=== PATIENT | female | born 1965 | race African-American/Black ===

== ENCOUNTER → 2023-03-28 | Outpatient (CLI) | payer OTHER ==
[2023-03-29 10:30] LABS: RUBELLA AB IGG-REFLAB 1.43 index (Immune >0.99); RUBEOLA (MEASLES) IGG 20.8 AU/mL (Immune >16.4)
== END | disposition home or self-care (01) ==
LOC: LABMN 14:07
PROVIDERS: ATTEND Internal Medicine
DX: Z02.1 Encounter for pre-employment examination (principal)
CPT/HCPCS: 86706; 86735; 86762; 86765; 86787

== ENCOUNTER 2023-06-30 18:54 | Emergency (ER) | payer OTHER ==
[~2023-06-30] VITALS: Ht 160 cm; Wt 79.5 kg
[2023-06-30 18:56] VITALS: TEMP 98.6
[2023-06-30 19:50] LABS: APPEARANCE,URINE CLEAR (CLEAR); BILIRUBIN,URINE NEGATIVE (NEGATIVE); COLOR,URINE COLORLESS (YELLOW); GLUCOSE, URINE (UA) >=1000 mg/dL (NEGATIVE); KETONES,URINE NEGATIVE (NEGATIVE); LEUKOCYTE ESTERASE ,URINE NEGATIVE (NEGATIVE); NITRATE,URINE NEGATIVE (NEGATIVE); OCCULT BLOOD,URINE NEGATIVE (NEGATIVE); PROTEIN,URINE NEGATIVE (NEGATIVE); UROBILINOGEN,URINE <=1.0 mg/dL (<=1.0)
[2023-06-30 20:03] LABS: ANION GAP 9 mmol/L (8-16); CALCIUM, TOTAL 9.1 mg/dL (8.8-10.5); CARBON DIOXIDE 26 mmol/L (22-29); CHLORIDE 99 mmol/L (98-107); CREATININE 0.94 mg/dL (0.60-1.30); GLOMERULAR FILTR. RATE CALC > 60 mL/min (>60); GLUCOSE,RANDOM 375 mg/dL (70-110); POTASSIUM 3.5 mmol/L (3.5-5.1); SODIUM SERUM 134 mmol/L (136-145); UREA NITROGEN, BLOOD 13 mg/dL (7-18)
[2023-06-30 20:09] LABS: ALANINE AMINOTRANSFERASE 41 U/L (12-78); ALBUMIN 3.2 g/dL (3.4-5.0); ALKALINE PHOSPHATASE 132 U/L (46-116); ASPARTATE AMINOTRANSFERASE 20 U/L (15-37); BILIRUBIN,TOTAL 0.3 mg/dL (0.1-1.0); LIPASE 37 U/L (16-77); TOTAL PROTEIN, SERUM 7.5 g/dL (6.4-8.2)
[2023-06-30 20:13] LABS: BASOPHILS % (AUTO) 0.4 % (0.0-2.0); EOSINOPHILS % (AUTO) 0.9 % (1.0-6.0); HEMATOCRIT 37.3 % (36-46); HEMOGLOBIN 12.2 g/dL (12.0-16.0); LYMPHOCYTES # (AUTO) 3.2 K/uL (1.0-4.8); LYMPHOCYTES % (AUTO) 46.4 % (22.0-44.0); MEAN CORPUSCULAR HEMOGLOBIN 28.8 pg (26.0-34.0); MEAN CORPUSCULAR HGB CONC 32.6 G/dL (31.0-37.0); MEAN CORPUSCULAR VOLUME 88 fL (80-100); MONOCYTES # (AUTO) 0.7 K/uL (0.1-1.0); MONOCYTES % (AUTO) 9.6 % (2.0-9.0); NEUTROPHILS # (AUTO) 2.9 K/uL (1.8-7.7); NEUTROPHILS % (AUTO) 42.7 % (40.0-70.0); PLATELET COUNT (AUTO) 243 K/uL (150-450); RED BLOOD CELL COUNT(AUTO) 4.23 MIL/uL (4.00-5.20); RED CELL DISTRIBUTION WIDTH 14.3 % (11.5-14.5); WHITE BLOOD COUNT (AUTO) 6.9 K/uL (4.5-11.0)
[2023-06-30 20:14] LABS: TROPONIN I-HIGH SENSITIVITY 4 ng/L (<51)
[2023-06-30 20:21] LABS: RBC,URINE None Seen /HPF (0-2)
[2023-06-30 20:23] LABS: YEAST,URINE Few /HPF (None Seen)
[2023-06-30 20:25] LABS: BACTERIA,URINE Few /HPF (None Seen)
[2023-06-30 20:27] LABS: ACETONE,BLOOD NEGATIVE (NEGATIVE)
[2023-06-30] MEDS ORDERED: SODIUM CHLORIDE 0.9% 1,000 ML IV ONE (21:15)
[2023-06-30 22:42] LABS: TROPONIN I-HIGH SENSITIVITY 5 ng/L (<51)
[2023-06-30] MEDS ORDERED: INSULIN REGULAR, HUMAN 100 UNITS/ML IVP ONE (22:45)
[2023-06-30 23:12] VITALS: BP 129/81; PULSE 89; RESP 16
== END 2023-06-30 23:17 | disposition home or self-care (01) ==
LOC: EMS 18:54
DX: K80.50 Calculus of bile duct without cholangitis or cholecystitis without obstruction (principal); E11.9 Type 2 diabetes mellitus without complications
CPT/HCPCS: 99285; 96374; 76705; 96361; 80053; 81001; 82009; 83690; 84484; 85025; 36415; 87086; 87186; 93005; J1815

== ENCOUNTER → 2023-07-13 | Outpatient (CLI) | payer OTHER ==
[~2023-07-13] VITALS: Ht 160 cm; Wt 87.0 kg
[~2023-07-13] MED LIST: FLAS1KIT3 SQ; LISI-893 PO; SIMV-259 PO
[2023-07-13 12:29] VITALS: BP 142/80; PULSE 64; RESP 22; TEMP 98.5; O2SAT 97
== END | disposition home or self-care (01) ==
LOC: SRCNTR 11:13
PROVIDERS: ATTEND Hospitalist
DX: E11.9 Type 2 diabetes mellitus without complications (principal); H26.9 Unspecified cataract
CPT/HCPCS: G0463

== ENCOUNTER → 2023-07-25 | Outpatient (CLI) | payer OTHER ==
[2023-07-25 09:23] LABS: ALANINE AMINOTRANSFERASE 49 U/L (12-78); ALBUMIN 3.6 g/dL (3.4-5.0); ALKALINE PHOSPHATASE 95 U/L (46-116); ANION GAP 7 mmol/L (8-16); ASPARTATE AMINOTRANSFERASE 31 U/L (15-37); CALCIUM, TOTAL 9.3 mg/dL (8.8-10.5); CARBON DIOXIDE 30 mmol/L (22-29); CHLORIDE 100 mmol/L (98-107); CHOLESTEROL 187 mg/dL (131-200); CREATININE 0.74 mg/dL (0.60-1.30); GLOMERULAR FILTR. RATE CALC > 60 mL/min (>60); GLUCOSE,RANDOM 268 mg/dL (70-110); HCG,QUANTITATIVE 2 mIU/mL (0-6); HDL CHOLESTEROL 62 mg/dL (40-60); LDL CHOL (CALC.) 104 mg/dL (0-130); SODIUM SERUM 137 mmol/L (136-145); TOTAL PROTEIN, SERUM 8.1 g/dL (6.4-8.2); TRIGLYCERIDES 107 mg/dL (15-150); UREA NITROGEN, BLOOD 8 mg/dL (7-18)
[2023-07-25 09:28] LABS: HEMOGLOBIN A1C 13.7 % (3.8-5.6)
== END | disposition home or self-care (01) ==
LOC: LABMN 08:36
PROVIDERS: ATTEND Hospitalist
DX: Z01.89 Encounter for other specified special examinations (principal)
CPT/HCPCS: 80053; 80061; 83001; 83036; 84702

== ENCOUNTER 2023-10-14 03:21 | Emergency (ER) | payer OTHER ==
[~2023-10-14] VITALS: Ht 160 cm; Wt 90.9 kg
[~2023-10-14 03:21] MED LIST changes: +METF-1211 PO
[2023-10-14 03:32] VITALS: TEMP 98.4
[2023-10-14 03:51] LABS: GLUCOMETER DEV NAME(LOC) ER.6; GLUCOSE,POINT OF CARE 303 MG/DL (70-110)
[2023-10-14] MEDS ORDERED: KETOROLAC TROMETHAMINE 60 MG/2 ML VIAL IM ONE (04:15)
[2023-10-14] MEDS ORDERED: IBUP-1554 PO (04:31)
[2023-10-14] MEDS ORDERED: HYDR-4723 PO (04:31)
[2023-10-14 04:36] VITALS: BP 127/75; PULSE 74; RESP 16
[2023-10-16] MEDS ORDERED: SEMA0.258 SQ (15:25)
== END 2023-10-14 04:39 | disposition home or self-care (01) ==
LOC: EMS 03:22
DX: S63.501A Unspecified sprain of right wrist, initial encounter (principal); G56.01 Carpal tunnel syndrome, right upper limb; E11.9 Type 2 diabetes mellitus without complications; X58.XXXA Exposure to other specified factors, initial encounter; Y93.89 Activity, other specified; Y92.89 Other specified places as the place of occurrence of the external cause; Y99.8 Other external cause status
CPT/HCPCS: 99283; 82962; 73110; 29125; 96372; J1885

== ENCOUNTER → 2023-10-16 | Outpatient (CLI) | payer OTHER ==
[~2023-10-16] VITALS: Ht 160 cm; Wt 89.0 kg
[~2023-10-16] MED LIST changes: +HYDR-4723 PO; +IBUP-1554 PO; +SEMA0.258 SQ; +TRESIBA SQ
[2023-10-16 14:35] VITALS: BP 113/77; PULSE 76; RESP 19; TEMP 98.5; O2SAT 94
== END | disposition home or self-care (01) ==
LOC: SRCNTR 13:58
PROVIDERS: ATTEND Hospitalist
DX: I10 Essential (primary) hypertension (principal); E78.5 Hyperlipidemia, unspecified; E11.9 Type 2 diabetes mellitus without complications; Z79.899 Other long term (current) drug therapy; Z79.84 Long term (current) use of oral hypoglycemic drugs; Z88.8 Allergy status to other drugs, medicaments and biological substances
CPT/HCPCS: G0463

== ENCOUNTER → 2023-11-09 | Outpatient (CLI) | payer OTHER ==
[2023-11-09 14:32] LABS: BASOPHILS % (AUTO) 0.4 % (0.0-2.0); HEMOGLOBIN 13.3 g/dL (12.0-16.0); LYMPHOCYTES # (AUTO) 2.2 K/uL (1.0-4.8); LYMPHOCYTES % (AUTO) 33.6 % (22.0-44.0); MEAN CORPUSCULAR HEMOGLOBIN 29.3 pg (26.0-34.0); MEAN CORPUSCULAR HGB CONC 33.2 G/dL (31.0-37.0); MEAN CORPUSCULAR VOLUME 88 fL (80-100); MONOCYTES # (AUTO) 0.7 K/uL (0.1-1.0); MONOCYTES % (AUTO) 10.6 % (2.0-9.0); NEUTROPHILS # (AUTO) 3.6 K/uL (1.8-7.7); NEUTROPHILS % (AUTO) 54.4 % (40.0-70.0); PLATELET COUNT (AUTO) 247 K/uL (150-450); RED BLOOD CELL COUNT(AUTO) 4.54 MIL/uL (4.00-5.20); RED CELL DISTRIBUTION WIDTH 14.5 % (11.5-14.5); WHITE BLOOD COUNT (AUTO) 6.6 K/uL (4.5-11.0)
[2023-11-09 16:18] LABS: COVID AG,FIA SOURCE NASAL SWAB
[2023-11-09 16:41] LABS: SARS-COV2 (COVID) ANTIGEN,FIA Negative (Negative)
[2023-11-09 16:45] LABS: INFLUENZA TYPE A NEGATIVE FOR TYPE A (NEGATIVE); INFLUENZA TYPE B NEGATIVE FOR TYPE B (NEGATIVE)
[2023-11-09 16:58] LABS: RESPIRATORY SYNCYTIAL VIRS,FIA POSITIVE (Negative)
== END | disposition home or self-care (01) ==
LOC: MSR 14:09
PROVIDERS: ATTEND Hospitalist
DX: J18.9 Pneumonia, unspecified organism (principal); B34.9 Viral infection, unspecified; J98.4 Other disorders of lung; Z20.822 Contact with and (suspected) exposure to COVID-19
CPT/HCPCS: 71046; 85025; 87420; 87804; 36415-L1; 36415-TC

== ENCOUNTER → 2023-11-09 | Outpatient (CLI) | payer OTHER ==
[~2023-11-09] VITALS: Ht 160 cm; Wt 87.0 kg
[2023-11-09 13:12] VITALS: BP 153/86; PULSE 82; RESP 20; TEMP 99.5; O2SAT 96
== END | disposition home or self-care (01) ==
LOC: SRCNTR 12:45
PROVIDERS: ATTEND Hospitalist
DX: E11.65 Type 2 diabetes mellitus with hyperglycemia (principal); E78.5 Hyperlipidemia, unspecified; I10 Essential (primary) hypertension; Z79.899 Other long term (current) drug therapy
CPT/HCPCS: G0463

== ENCOUNTER → 2023-12-27 | Outpatient (CLI) | payer OTHER ==
[~2023-12-27] VITALS: Ht 160 cm; Wt 87.0 kg
[~2023-12-27] MED LIST changes: +HYDR-4062 PO; -HYDR-4723 PO
[2023-12-27 13:04] VITALS: BP 139/77; PULSE 89; RESP 17; TEMP 98.3; O2SAT 97
== END | disposition home or self-care (01) ==
LOC: SRCNTR 12:48
PROVIDERS: ATTEND Hospitalist
DX: I10 Essential (primary) hypertension (principal); E78.5 Hyperlipidemia, unspecified; E11.65 Type 2 diabetes mellitus with hyperglycemia; Z79.899 Other long term (current) drug therapy; Z88.8 Allergy status to other drugs, medicaments and biological substances
CPT/HCPCS: G0463

== ENCOUNTER 2024-03-10 08:13 | Emergency (ER) | payer OTHER ==
[~2024-03-10] VITALS: Ht 160 cm; Wt 87.7 kg
[2024-03-10 08:22] VITALS: BP 135/90; PULSE 85; RESP 18; TEMP 97.8
[2024-03-10] MEDS: LIDOCAINE 5% TRANSDERMAL PATCH TD ONE (09:04)
[2024-03-10] MEDS: KETOROLAC TROMETHAMINE 30 MG/ML VIAL IM ONE (09:04)
[2024-03-10] MEDS ORDERED: ACET-3385 PO (09:07)
[2024-03-10] MEDS ORDERED: LIDO700A15 TP (09:07)
[2024-03-10] MEDS ORDERED: IBUP-1492 PO (09:07)
== END 2024-03-10 09:12 | disposition home or self-care (01) ==
LOC: EMS 08:13
DX: S29.012A Strain of muscle and tendon of back wall of thorax, initial encounter (principal); S16.1XXA Strain of muscle, fascia and tendon at neck level, initial encounter; E11.9 Type 2 diabetes mellitus without complications; X58.XXXA Exposure to other specified factors, initial encounter; Y93.89 Activity, other specified; Y92.89 Other specified places as the place of occurrence of the external cause; Y99.8 Other external cause status
CPT/HCPCS: 99283; 96372; J1885

== ENCOUNTER → 2024-05-09 | Outpatient (CLI) | payer OTHER ==
[~2024-05-09] VITALS: Ht 160 cm; Wt 88.0 kg
[~2024-05-09] MED LIST changes: +ACET-3385 PO; +IBUP-1492 PO; +LIDO700A15 TP; +PARO10TA89 PO
[2024-05-09 13:29] VITALS: BP 132/73; PULSE 86; RESP 18; TEMP 98.8; O2SAT 98
== END | disposition home or self-care (01) ==
LOC: SRCNTR 13:10
PROVIDERS: ATTEND Hospitalist
DX: F41.9 Anxiety disorder, unspecified (principal); I10 Essential (primary) hypertension; E11.9 Type 2 diabetes mellitus without complications; Z79.84 Long term (current) use of oral hypoglycemic drugs; Z79.899 Other long term (current) drug therapy
CPT/HCPCS: G0463; Z7500

== ENCOUNTER 2024-08-27 13:51 | Emergency (ER) | payer OTHER ==
[~2024-08-27] VITALS: Ht 160 cm; Wt 85.9 kg
[2024-08-27 13:55] VITALS: TEMP 98.6
[2024-08-27] MEDS ORDERED: EMPA25TA3 PO (13:55)
[2024-08-27] MEDS ORDERED: [UNRECOGNIZED DRUG - CODE] (13:55)
[2024-08-27 14:09] LABS: COVID AG,FIA SOURCE NASAL SWAB
[2024-08-27] MEDS: ONDANSETRON 4 MG TABLET PO ONE (14:26)
[2024-08-27 14:28] LABS: BASOPHILS % (AUTO) 0.4 % (0.0-2.0); HEMATOCRIT 41.6 % (36-46); HEMOGLOBIN 13.3 g/dL (12.0-16.0); LYMPHOCYTES # (AUTO) 2.1 K/uL (1.0-4.8); LYMPHOCYTES % (AUTO) 33.7 % (22.0-44.0); MEAN CORPUSCULAR HEMOGLOBIN 28.7 pg (26.0-34.0); MEAN CORPUSCULAR HGB CONC 32.1 G/dL (31.0-37.0); MEAN CORPUSCULAR VOLUME 90 fL (80-100); MONOCYTES # (AUTO) 0.6 K/uL (0.1-1.0); MONOCYTES % (AUTO) 9.8 % (2.0-9.0); NEUTROPHILS # (AUTO) 3.4 K/uL (1.8-7.7); NEUTROPHILS % (AUTO) 55.1 % (40.0-70.0); PLATELET COUNT (AUTO) 278 K/uL (150-450); RED BLOOD CELL COUNT(AUTO) 4.65 MIL/uL (4.00-5.20); RED CELL DISTRIBUTION WIDTH 14.6 % (11.5-14.5); WHITE BLOOD COUNT (AUTO) 6.2 K/uL (4.5-11.0)
[2024-08-27 14:36] LABS: ANION GAP 7 mmol/L (8-16); CARBON DIOXIDE 30 mmol/L (22-29); CHLORIDE 103 mmol/L (98-107); CREATININE 0.82 mg/dL (0.60-1.30); GLOMERULAR FILTR. RATE CALC > 60 mL/min (>60); GLUCOSE,RANDOM 111 mg/dL (70-110); POTASSIUM 3.8 mmol/L (3.5-5.1); SODIUM SERUM 140 mmol/L (136-145); UREA NITROGEN, BLOOD 7 mg/dL (7-18)
[2024-08-27 14:37] LABS: LIPASE 44 U/L (16-77)
[2024-08-27 14:45] LABS: INFLUENZA TYPE A NEGATIVE FOR TYPE A (NEGATIVE); INFLUENZA TYPE B NEGATIVE FOR TYPE B (NEGATIVE); SARS-COV2 (COVID) ANTIGEN,FIA Negative (Negative)
[2024-08-27 15:00] VITALS: BP 119/67; PULSE 74; RESP 17; O2SAT 98
[2024-08-27] MEDS ORDERED: ONDA-104 PO (15:21)
[2024-08-27 15:22] LABS: APPEARANCE,URINE HAZY (CLEAR); BILIRUBIN,URINE NEGATIVE (NEGATIVE); COLOR,URINE LIGHT YELLOW (YELLOW); GLUCOSE, URINE (UA) >=1000 mg/dL (NEGATIVE); KETONES,URINE NEGATIVE (NEGATIVE); LEUKOCYTE ESTERASE ,URINE NEGATIVE (NEGATIVE); NITRATE,URINE NEGATIVE (NEGATIVE); OCCULT BLOOD,URINE NEGATIVE (NEGATIVE); PH,URINE 5.5 (5.0-8.0); PROTEIN,URINE 30-70 mg/dL (NEGATIVE); SPECIFIC GRAVITIY, URINE 1.025 (1.003-1.030); UROBILINOGEN,URINE <=1.0 mg/dL (<=1.0)
[2024-08-27 15:39] LABS: RBC,URINE None Seen /HPF (0-2)
[2024-08-27 15:40] LABS: BACTERIA,URINE Moderate /HPF (None Seen); SQUAMOUS EPITHELIAL CELL,UR Many /LPF (None Seen)
== END 2024-08-27 15:48 | disposition home or self-care (01) ==
LOC: EMS 13:53
DX: R11.2 Nausea with vomiting, unspecified (principal); R10.9 Unspecified abdominal pain; E11.9 Type 2 diabetes mellitus without complications; I10 Essential (primary) hypertension; E78.00 Pure hypercholesterolemia, unspecified; Z79.85 Long-term (current) use of injectable non-insulin antidiabetic drugs; Z79.899 Other long term (current) drug therapy; Z20.822 Contact with and (suspected) exposure to COVID-19
CPT/HCPCS: 99283; 87426; 80048; 81001; 83690; 85025; 87086; 87804; 36415; 82962; Q0162

== ENCOUNTER → 2024-09-04 | Emergency (ER) | payer OTHER ==
[~2024-09-04] VITALS: Ht 160 cm; Wt 85.9 kg
[~2024-09-04] MED LIST changes: -ACET-3385 PO; +EMPA25TA3 PO; -IBUP-1492 PO; -METF-1211 PO; +ONDA-104 PO; -SIMV-259 PO; -TRESIBA SQ; +[UNRECOGNIZED DRUG - CODE]
[2024-09-04 05:53] VITALS: BP 119/66; PULSE 76; RESP 18; TEMP 98.3; O2SAT 97
[2024-09-04] MEDS: METHOCARBAMOL 500 MG TABLET PO ONE (06:31)
[2024-09-04] MEDS: IBUPROFEN 400 MG TABLET PO ONE (06:32)
[2024-09-04] MEDS: LIDOCAINE 5% TRANSDERMAL PATCH TD ONE (06:32)
== END | disposition home or self-care (01) ==
LOC: EDUNIT# 05:52 → EMS 05:54
DX: S29.012A Strain of muscle and tendon of back wall of thorax, initial encounter (principal); E11.9 Type 2 diabetes mellitus without complications; E78.00 Pure hypercholesterolemia, unspecified; I10 Essential (primary) hypertension; Z79.899 Other long term (current) drug therapy; Z79.85 Long-term (current) use of injectable non-insulin antidiabetic drugs; Y08.89XA Assault by other specified means, initial encounter; Y93.89 Activity, other specified; Y92.89 Other specified places as the place of occurrence of the external cause; Y99.0 Civilian activity done for income or pay
CPT/HCPCS: 99284; Z7502; Z7610

== ENCOUNTER 2024-09-13 15:16 | Emergency (ER) | payer SELFPAY ==
[~2024-09-13] VITALS: Ht 162.6 cm; Wt 63.6 kg
[2024-09-13 17:15] LABS: BASOPHILS % (AUTO) 0.4 % (0.0-2.0); EOSINOPHILS % (AUTO) 0.7 % (1.0-6.0); HEMATOCRIT 40.4 % (36-46); HEMOGLOBIN 13.5 g/dL (12.0-16.0); LYMPHOCYTES # (AUTO) 2.7 K/uL (1.0-4.8); LYMPHOCYTES % (AUTO) 41.6 % (22.0-44.0); MEAN CORPUSCULAR HEMOGLOBIN 29.7 pg (26.0-34.0); MEAN CORPUSCULAR HGB CONC 33.4 G/dL (31.0-37.0); MEAN CORPUSCULAR VOLUME 89 fL (80-100); MONOCYTES # (AUTO) 0.7 K/uL (0.1-1.0); MONOCYTES % (AUTO) 10.4 % (2.0-9.0); NEUTROPHILS % (AUTO) 46.9 % (40.0-70.0); PLATELET COUNT (AUTO) 259 K/uL (150-450); RED BLOOD CELL COUNT(AUTO) 4.55 MIL/uL (4.00-5.20); RED CELL DISTRIBUTION WIDTH 14.8 % (11.5-14.5); WHITE BLOOD COUNT (AUTO) 6.4 K/uL (4.5-11.0)
[2024-09-13 17:34] LABS: ANION GAP 6 mmol/L (8-16); CALCIUM, TOTAL 9.1 mg/dL (8.8-10.5); CARBON DIOXIDE 30 mmol/L (22-29); CHLORIDE 102 mmol/L (98-107); CREATININE 0.94 mg/dL (0.60-1.30); GLOMERULAR FILTR. RATE CALC > 60 mL/min (>60); GLUCOSE,RANDOM 107 mg/dL (70-110); POTASSIUM 3.9 mmol/L (3.5-5.1); SODIUM SERUM 138 mmol/L (136-145); UREA NITROGEN, BLOOD 11 mg/dL (7-18)
[2024-09-13 17:39] LABS: ALANINE AMINOTRANSFERASE 27 U/L (12-78); ALBUMIN 3.6 g/dL (3.4-5.0); ALKALINE PHOSPHATASE 76 U/L (46-116); ASPARTATE AMINOTRANSFERASE 18 U/L (15-37); BILIRUBIN,TOTAL 0.9 mg/dL (0.1-1.0); LIPASE 42 U/L (16-77); TOTAL PROTEIN, SERUM 7.7 g/dL (6.4-8.2)
[2024-09-13] MEDS: KETOROLAC TROMETHAMINE 30 MG/ML VIAL IVP ONE (17:39)
[2024-09-13] MEDS: ONDANSETRON HCL 4 MG/2 ML VIAL IVP ONE (17:39)
[2024-09-13] MEDS: SODIUM CHLORIDE 0.9% 1,000 ML IV ONE (17:40)
[2024-09-13] MEDS ORDERED: OMEP20 PO (19:12)
[2024-09-13] MEDS ORDERED: ACET-66 PO (19:12)
[2024-09-13] MEDS ORDERED: ONDA-104 PO (19:12)
[2024-09-13] MEDS ORDERED: MAG30ORA11 PO (19:12)
[2024-09-13 19:25] VITALS: BP 129/74; PULSE 75; RESP 18; TEMP 98.3; O2SAT 99
== END 2024-09-13 19:05 | disposition home or self-care (01) ==
LOC: EMS 15:16
DX: K21.9 Gastro-esophageal reflux disease without esophagitis (principal); R10.13 Epigastric pain; R11.2 Nausea with vomiting, unspecified; E11.9 Type 2 diabetes mellitus without complications; I10 Essential (primary) hypertension; E78.00 Pure hypercholesterolemia, unspecified; Z79.85 Long-term (current) use of injectable non-insulin antidiabetic drugs; Z79.899 Other long term (current) drug therapy
CPT/HCPCS: 80048; 80076; 83690; 85025; 36415; 76700; 99285; 96361; 96374; 96375; J1885; J2405; J7030

== ENCOUNTER 2024-11-25 06:50 | Day surgery (SDC) | payer OTHER ==
[~2024-11-25] VITALS: Ht 160 cm; Wt 85.9 kg
[~2024-11-25 06:50] MED LIST changes: +ACET-66 PO; +LIDOCAINE/PF 2% 5 ML VIAL ONE; +LISI10TA24 PO; +MAG30ORA11 PO; +METF-1211 PO; +OMEP-148 PO; +PROPOFOL 1% 20 ML VIAL IVP ONE; +SEMA14TA2 PO; +SIMV10TA97 PO
[2024-11-25] MEDS ORDERED: SODIUM CHLORIDE 0.9% 1,000 ML IV ONE (07:30)
[2024-11-25] MEDS ORDERED: SODIUM CHLORIDE 0.9% 1,000 ML ONE (07:33)
[2024-11-25 08:21] LABS: GLUCOMETER DEV NAME(LOC) SDS.; GLUCOSE,POINT OF CARE 110 MG/DL (70-110)
== END 2024-11-25 10:35 | disposition home or self-care (01) ==
LOC: SURGERY 06:50
PROVIDERS: ATTEND Internal Medicine Gastroenterology
DX: Z12.11 Encounter for screening for malignant neoplasm of colon (principal); K57.30 Diverticulosis of large intestine without perforation or abscess without bleeding; K64.0 First degree hemorrhoids; Z79.899 Other long term (current) drug therapy; E11.9 Type 2 diabetes mellitus without complications; Z79.4 Long term (current) use of insulin; E66.01 Morbid (severe) obesity due to excess calories; Z68.33 Body mass index [BMI] 33.0-33.9, adult; Z98.890 Other specified postprocedural states
CPT/HCPCS: 45378; 82962; J2704; J3490; J7030

== ENCOUNTER → 2025-06-17 | Outpatient (CLI) | payer OTHER ==
[~2025-06-17] MED LIST changes: +LIDO-57 TP; -LIDO700A15 TP; -LIDOCAINE/PF 2% 5 ML VIAL ONE; -PROPOFOL 1% 20 ML VIAL IVP ONE
[2025-06-17 10:17] LABS: ASPARTATE AMINOTRANSFERASE 24 U/L (15-37); CALCIUM, TOTAL 8.5 mg/dL (8.8-10.5); CHOL/HDL RATIO 2.7 (3.9-5.7); CREATININE 0.53 mg/dL (0.60-1.30); GLOMERULAR FILTR. RATE CALC > 60 mL/min (>60); GLUCOSE,RANDOM 94 mg/dL (70-110); LDL CHOL (CALC.) 104 mg/dL (0-130); SODIUM SERUM 142 mmol/L (136-145); TOTAL PROTEIN, SERUM 7.4 g/dL (6.4-8.2); UREA NITROGEN, BLOOD 7 mg/dL (7-18)
[2025-06-17 10:20] LABS: VITAMIN D,TOTAL (25-0H) 14 ng/mL (30-100)
[2025-06-17 10:21] LABS: FOLATE SERUM > 24.0 ng/mL (5.4-); VITAMIN B12 LEVEL 462 pg/mL (211-911)
== END | disposition home or self-care (01) ==
LOC: LABMN 09:27
PROVIDERS: ATTEND Internal Medicine Geriatric Medicine
DX: E11.22 Type 2 diabetes mellitus with diabetic chronic kidney disease (principal); N18.1 Chronic kidney disease, stage 1; E11.59 Type 2 diabetes mellitus with other circulatory complications; E78.5 Hyperlipidemia, unspecified; E66.01 Morbid (severe) obesity due to excess calories
CPT/HCPCS: 80053; 80061; 82306; 82607; 82746; 83036; 84443